=== PATIENT | female | born 1995 | race Caucasian/White ===

== ENCOUNTER 2020-06-12 20:24 | Inpatient (IN) | payer OTHER ==
[~2020-06-12] VITALS: Ht 172.7 cm; Wt 79.5 kg
[2020-06-12] MEDS: D5%-LACTATED RINGERS 1,000 ML IV SCH (20:40)
[2020-06-12] MEDS ORDERED: OXYTOCIN 30U/ 0.9% NaCL 500ML 500 ML IV ONE (20:40)
[2020-06-12] MEDS ORDERED: OXYTOCIN 30U/ 0.9% NaCL 500ML 500 ML IV PRN (20:40)
[2020-06-12] MEDS: LACTATED RINGERS 1,000 ML IV SCH ×2 (20:50→23:35)
[2020-06-12] MEDS ORDERED: LIDOCAINE 1%, 20ML ONE (20:51)
[2020-06-12] MEDS ORDERED: NEWBORN KIT ONE (20:51)
[2020-06-12] MEDS ORDERED: MISOPROSTOL 200 MCG TABLET ONE (20:52)
[2020-06-12] MEDS ORDERED: OXYTOCIN 30U/ 0.9% NaCL 500ML 500 ML ONE (20:52)
[2020-06-12] MEDS ORDERED: ONDANSETRON 2MG/ML, 2ML IVPush PRN (21:00)
[2020-06-12] MEDS ORDERED: ALUMINUM/MAG/SIMETHICONE 30 ML UDC PO PRN (21:00)
[2020-06-12] MEDS ORDERED: FENTANYL PF 100 MCG/2ML IVPush PRN (21:00)
[2020-06-12] MEDS ORDERED: METOCLOPRAMIDE 5 MG/ML, 2ML IVPush PRN (21:00)
[2020-06-12] MEDS ORDERED: FENTANYL PF 100 MCG/2ML IV PRN (21:00)
[2020-06-12] MEDS ORDERED: CALCIUM CARBONATE 500 MG TAB.CHEW PO PRN (21:00)
[2020-06-12] MEDS ORDERED: TERBUTALINE 1 MG/ML, 1ML SQ PRN (21:00)
[2020-06-12] MEDS ORDERED: PLEASE ENTER HEIGHT AND WEIGHT MC SCH (21:00)
[2020-06-12] MEDS ORDERED: SODIUM CITRATE/CITRIC ACID 30 ML UDC PO PRN (21:00)
[2020-06-12] MEDS ORDERED: TERBUTALINE 1 MG/ML, 1ML IVPush PRN (21:00)
[2020-06-12 21:18] LABS: BASOPHILS # (AUTO) 0.04 x10^3/uL (0-0.1); BASOPHILS % (AUTO) 0 % (0-1); EOSINOPHILS % (AUTO) 0 % (1-7); LYMPHOCYTES # (AUTO) 0.96 x10^3/uL (1-3.4); LYMPHOCYTES % (AUTO) 8 % (22-44); MD NO; MEAN CORPUSCULAR HEMOGLOBIN 31.8 pg (27.0-34.8); MEAN CORPUSCULAR HGB CONC 33.5 g/dL (32.4-35.8); MEAN CORPUSCULAR VOLUME 94.9 fL (80-100); MEAN PLATELET VOLUME 10.1 fL (7.4-10.4); MONOCYTES # (AUTO) 0.49 x10^3/uL (0.2-0.8); MONOCYTES % (AUTO) 4 % (2-9); NEUTROPHILS % (AUTO) 88 % (42-75); PLATELET COUNT 194 x10^3/uL (130-400); RED BLOOD COUNT 4.11 x10^6/uL (3.82-5.3); RED CELL DISTRIBUTION WIDTH 13.1 % (9.6-15.2)
[2020-06-12] MEDS ORDERED: PREN1TAB60 PO (21:37)
[2020-06-12 21:38] VITALS: BP 112/68
[2020-06-12] MEDS ORDERED: CALCIUM CARBONATE 500 MG TAB.CHEW ONE (22:50)
[2020-06-12] MEDS ORDERED: BUPIVACAINE 0.25% ONE (23:35)
[2020-06-12] MEDS ORDERED: FENTANYL PF 100 MCG/2ML ONE (23:35)
[2020-06-12] MEDS ORDERED: FENTANYL/BUPIV./NS/PF 250 ML EPIDCONT ONE (23:35)
[2020-06-13] MEDS ORDERED: FENTANYL/BUPIV./NS/PF 250 ML EPIDCONT SCH (00:07)
[2020-06-13] MEDS ORDERED: LACTATED RINGERS 1,000 ML IV SCH (00:07)
[2020-06-13] MEDS ORDERED: LACTATED RINGERS 1,000 ML IVBOLUS PRN (00:30)
[2020-06-13] MEDS ORDERED: ONDANSETRON 2MG/ML, 2ML IVPush PRN (00:30)
[2020-06-13] MEDS ORDERED: EPHEDRINE 50 MG/ML, 1ML IVPush PRN (00:30)
[2020-06-13 00:40] VITALS: BP 103/57
[2020-06-13] MEDS: LACTATED RINGERS 1,000 ML IV SCH ×2 (03:25→09:41)
[2020-06-13] MEDS: D5%-LACTATED RINGERS 1,000 ML IV SCH (04:40)
[2020-06-13 06:17] VITALS: BP 120/68
[2020-06-13] MEDS ORDERED: BUPIVACAINE 0.25% ONE (09:53)
[2020-06-13] MEDS ORDERED: OXYcodone/APAP 5/325MG TABLET PO PRN (14:00)
[2020-06-13] MEDS ORDERED: ONDANSETRON 2MG/ML, 2ML IV PRN (14:00)
[2020-06-13] MEDS ORDERED: CARBOPROST TROMETHAMINE 250 MCG/ML, 1ML IM PRN (14:00)
[2020-06-13] MEDS ORDERED: SIMETHICONE 80 MG CHEW TAB PO PRN (14:00)
[2020-06-13] MEDS ORDERED: METHYLERGONOVINE 0.2 MG/ML IM PRN (14:00)
[2020-06-13] MEDS ORDERED: ACETAMINOPHEN 325 MG TABLET PO PRN (14:00)
[2020-06-13] MEDS ORDERED: MISOPROSTOL 200 MCG TABLET PR PRN (14:00)
[2020-06-13] MEDS ORDERED: DOCUSATE 100 MG CAPSULE PO PRN (14:00)
[2020-06-13] MEDS ORDERED: OXYcodone IR 5MG TABLET PO PRN (14:00)
[2020-06-13] MEDS ORDERED: IBUPROFEN 600 MG TABLET ONE (14:02)
[2020-06-13] MEDS: IBUPROFEN 600 MG TABLET PO PRN ×2 (14:03→19:51)
[2020-06-13] MEDS: OXYTOCIN 30U/ 0.9% NaCL 500ML 500 ML IV SCH ×2 (14:04→23:53)
[2020-06-13 18:00] VITALS: BP 102/63
[2020-06-13 19:25] VITALS: BP 99/56
[2020-06-13 22:04] LABS: MEAN CORPUSCULAR HEMOGLOBIN 31.7 pg (27.0-34.8); MEAN CORPUSCULAR HGB CONC 33.4 g/dL (32.4-35.8); MEAN PLATELET VOLUME 9.5 fL (7.4-10.4); PLATELET COUNT 169 x10^3/uL (130-400); RED BLOOD COUNT 3.65 x10^6/uL (3.82-5.3); RED CELL DISTRIBUTION WIDTH 13.5 % (9.6-15.2)
[2020-06-13 22:21] LABS: MD YES
[2020-06-13 22:23] LABS: BAND#(MANUAL) 0.73 x10^3/uL; BANDS%(MANUAL) 4 % (0-7); EOS#(MANUAL) 0.18 x10^3/uL (0.0-0.4); EOS% (MANUAL) 1 % (1-7); LYMPH#(MANUAL) 1.64 x10^3/uL (1-3.4); LYMPHS% (MANUAL) 9 % (22-44); MONOS#(MANUAL) 0.18 x10^3/uL (0.3-2.7); MONOS% (MANUAL) 1 % (2-9); SEG#(MANUAL) 15.47 x10^3/uL (1.8-6.8); SEGS% (MANUAL) 85 % (42-75)
[2020-06-13 22:24] LABS: <PLATELET ESTIMATE> ADEQUATE; <PLT MORPHOLOGY> NORMAL PLT MORPH; HYPOCHROMIA 1+
[2020-06-14 00:15] VITALS: BP 98/53
[2020-06-14] MEDS: IBUPROFEN 600 MG TABLET PO PRN ×2 (04:49→10:54)
[2020-06-14 04:50] VITALS: BP 103/65
[2020-06-14 08:00] VITALS: BP 103/70
[2020-06-14] MEDS ORDERED: PRENATAL VIT/IRON/FA 1 EACH TABLET PO SCH (09:00)
[2020-06-14] MEDS ORDERED: IBUP-1222 PO (11:14)
[2020-06-14] MEDS ORDERED: DOCU-131 PO (11:15)
== END 2020-06-14 16:15 | disposition home or self-care (01) | DRG 807 ==
LOC: LDOP 20:24 → LDIP 20:46 → 2NW 06-13 16:20
PROVIDERS: ADMIT Obstetrics & Gynecology Maternal & Fetal Medicine; ATTEND Obstetrics & Gynecology Maternal & Fetal Medicine
PROC: 10E0XZZ Delivery of Products of Conception, External Approach (ICD-10-PCS; principal; 2020-06-12)
PROC: 3E0R3BZ Introduction of Anesthetic Agent into Spinal Canal, Percutaneous Approach (ICD-10-PCS; 2020-06-13)
PROC: 00HU33Z Insertion of Infusion Device into Spinal Canal, Percutaneous Approach (ICD-10-PCS; 2020-06-13)
PROC: 0UQMXZZ Repair Vulva, External Approach (ICD-10-PCS; 2020-06-13)
DX: O62.9 Abnormality of forces of labor, unspecified (principal); Z37.0 Single live birth; E16.2 Hypoglycemia, unspecified; O99.284 Endocrine, nutritional and metabolic diseases complicating childbirth; O71.82 Other specified trauma to perineum and vulva; Z3A.39 39 weeks gestation of pregnancy; Z20.828 Contact with and (suspected) exposure to other viral communicable diseases
CPT/HCPCS: 36415; 85025; 86592; 86850; 86900; 87635; G0378; J2590; J3010; J7120